=== PATIENT | female | born 2000 | race Caucasian/White ===

== ENCOUNTER 2022-03-29 18:30 | Emergency (ER) | payer BC, SELFPAY | END 2022-03-29 22:49 | disposition home or self-care (01) | LOC: CSHERS 18:30 | DX: R22.32 Localized swelling, mass and lump, left upper limb (principal) ==

== ENCOUNTER 2022-08-03 13:39 | Emergency (ER) | payer BC ==
[2022-08-03 15:12] LABS: Bilirubin Neg (Negative); Blood, Urine 50 (Negative); Clarity Sl. Cloudy (Clear); Glucose, Urine (Dipstick) Normal (Negative); Ketone, Urine 50 mg/dL (Negative); Leukocyte 25 (Negative); Nitrite Negative (Negative); Protein, Urine (Dipstick) 15 mg/dl (Neg-Trace)
[2022-08-03 15:13] LABS: Pregnancy Test - Urine (BHCG) Negative (Negative); Pregu Control Background? CLEAR/WHITE (CLR/WHITE); Pregu Control Bar Appear? YES (CONTROL BAR)
[2022-08-03 15:18] LABS: Bacteria/HPF Rare-Few HPF (None Seen); RBC/HPF 0-3 HPF (0-3); WBC/HPF 0-3 HPF (0-3)
[2022-08-03 15:26] LABS: SARS-CoV-2 NAA Rapid Test Not Detected (NotDetected)
== END 2022-08-03 17:16 | disposition home or self-care (01) ==
LOC: CSHERS 13:39
DX: J11.1 Influenza due to unidentified influenza virus with other respiratory manifestations (principal); R11.2 Nausea with vomiting, unspecified; Z20.822 Contact with and (suspected) exposure to COVID-19
CPT/HCPCS: 81003; 81015; 81025; 99283

== ENCOUNTER 2023-08-14 10:45 | Emergency (ER) | payer BC ==
[2023-08-14] MEDS ORDERED: Lidocaine Viscous Sol 2% 15 ml UD Cup SSP SCH (11:30)
[2023-08-14] MEDS ORDERED: Dexamethasone 10 MG/ML VIAL ONE (11:51)
[2023-08-14 12:06] LABS: SARS-CoV-2 NAA Rapid Test Not Detected (NotDetected)
[2023-08-14] MEDS ORDERED: Bicillin LA 1.2 MILLION UNITS/2 ML SYRINGE IM SCH (12:30)
== END 2023-08-14 12:42 | disposition home or self-care (01) ==
LOC: CSHERS 10:45
DX: J02.0 Streptococcal pharyngitis (principal); Z20.822 Contact with and (suspected) exposure to COVID-19
CPT/HCPCS: 87430; 96372; 99283; J0561; J1100

== ENCOUNTER 2024-03-22 19:48 | Emergency (ER) | payer BC | END 2024-03-22 22:03 | disposition home or self-care (01) | LOC: CSHERS 19:48 | DX: S90.112A Contusion of left great toe without damage to nail, initial encounter (principal); X58.XXXA Exposure to other specified factors, initial encounter; Z55.6 Problems related to health literacy ==

== ENCOUNTER 2024-08-29 09:02 | Emergency (ER) | payer BC, OTHER ==
[2024-08-29] MEDS ORDERED: Ondansetron PF 4 MG/2 ML Vial ONE (10:05)
[2024-08-29 10:49] LABS: #Basophils 0.03 10x3/uL (0.0-0.2); #Eosinophils 0.04 10x3/uL (0.0-0.5); #Neutrophils 6.76 10x3/uL (1.5-8.4); %Basophils 0.3 % (0.0-2.0); %Eosinophils 0.4 % (0.0-6.0); %Lymphocytes 18.1 % (18.0-47.0); %Monocytes 4.5 % (0.0-10.0); %Neutrophils 76.1 % (40.0-75.0); Hematocrit 35.9 % (34.9-44.5); Hemoglobin 11.8 g/dL (12.0-15.5); Mean Corpuscular HGB CONC 32.9 g/dL (32.0-36.0); Mean Corpuscular Hemoglobin 28.9 pg (27.0-33.0); Mean Platelet Volume 9.2 fL (7.4-10.4); Platelet Count 318 10x3/uL (150-450); RBC Distribution Width 12.8 % (11.5-14.5); Red Blood Cell (RBC) Count 4.08 10x6/uL (3.90-5.03); White Blood Cell (WBC) Count 8.9 10x3/uL (3.5-10.5)
[2024-08-29 11:27] LABS: ALT (SGPT) Less than 7 U/L (8-55); AST (SGOT) 11 U/L (5-34); Albumin 2.7 g/dL (3.5-5.0); Alkaline Phosphatase 52 U/L (40-110); Anion Gap 11 mmol/L (10-20); BUN (Urea Nitrogen) 7 mg/dL (7.0-18.7); Bilirubin, Total 0.3 mg/dL (0.2-1.2); Calc. Creatinine Clearance 0 mL/min (70-130); Calcium 8.6 mg/dL (7.8-10.44); Carbon Dioxide 22 mmol/L (22-29); Chloride 107 mmol/L (98-107); Estimated GFR 129; Globulin 3.2 g/dL (2.4-3.5); Glucose 80 mg/dL (70-105); Lipase 18 U/L (8-78); Potassium 4.2 mmol/L (3.5-5.1); Protein, Total 5.9 g/dL (6.0-8.3); Sodium 136 mmol/L (136-145)
[2024-08-29 13:09] LABS: Bilirubin Neg (Negative); Blood, Urine Negative (Negative); Clarity Cloudy (Clear); Glucose, Urine (Dipstick) Normal (Negative); Ketone, Urine Negative (Negative); Leukocyte 500 (Negative); Nitrite Negative (Negative); Protein, Urine (Dipstick) 15 mg/dl (Neg-Trace); Specific Gravity, Urine 1.005 (1.005-1.030); Urobilinogen Normal mg/dL (Less than 2)
[2024-08-29 15:10] LABS: RBC/HPF 0-3 HPF (0-3)
[2024-08-29 15:11] LABS: CAUTI Indications for Culture Pregnancy; Squamous Epithelial 21-50 HPF (0-3)
[2024-08-29 15:12] LABS: Bacteria/HPF 3+ HPF (None Seen); Transitional Epithelial 0-3 HPF (None Seen)
[2024-08-29 15:13] LABS: Mucous/LPF 2+ LPF (<2+)
[2024-08-29 15:14] LABS: Urine Culture Reflex Yes Yes
== END 2024-08-29 15:43 | disposition home or self-care (01) ==
LOC: CSHERS 09:02
DX: O23.42 Unspecified infection of urinary tract in pregnancy, second trimester (principal); N39.0 Urinary tract infection, site not specified; O21.9 Vomiting of pregnancy, unspecified; Z3A.19 19 weeks gestation of pregnancy
CPT/HCPCS: 36415; 80053; 81001; 83690; 84702; 85025; 87086; 96374; J2405

== ENCOUNTER 2025-09-04 08:48 | Emergency (ER) | payer BC, OTHER | END 2025-09-04 09:30 | disposition home or self-care (01) | LOC: CSHERS 08:48 | DX: J06.9 Acute upper respiratory infection, unspecified (principal); R11.10 Vomiting, unspecified; R42 Dizziness and giddiness | CPT/HCPCS: 87428; 99284 ==